=== PATIENT | male | born 1940 | race Caucasian/White ===

== ENCOUNTER → 2018-06-20 | Outpatient (CLI) | payer BC ==
[~2018-06-20] MED LIST: ABX; AMOXICILLIN 50500 MG PO; ASPIR 8181 MG PO; ASPIRIN325 PO; CITRACAL D + H1 EACH PO; FISH OIL 1,001000 M2 PO; FLAGYL500 MG PO; HYDROCHLOROTHIA25 M2 PO; LIPITOR 20 MG T20 M1 PO; LISINOPRIL20 MG PO; MIRALAX17 GM PO; NEPHROCAPS SOFT1 CAP PO; NITROSTAT0.4 MG SL; NORVASC5 MG PO; PREVACID15 MG PO; SIMVASTATIN; [UNRECOGNIZED DRUG - REMARK]
== END ==
LOC: M.LAB 05:58
DX: Z01.812 Encounter for preprocedural laboratory examination (principal); E78.5 Hyperlipidemia, unspecified; I10 Essential (primary) hypertension; F10.99 Alcohol use, unspecified with unspecified alcohol-induced disorder; Z95.1 Presence of aortocoronary bypass graft

== ENCOUNTER → 2021-10-17 | Outpatient (CLI) | payer BC | LOC: M.LAB 11:46 | PROVIDERS: ATTEND Internal Medicine Gastroenterology | DX: Z01.812 Encounter for preprocedural laboratory examination (principal); Z20.822 Contact with and (suspected) exposure to COVID-19; E87.6 Hypokalemia ==